=== PATIENT | female | born 1990 | race Caucasian/White ===

== ENCOUNTER 2023-04-18 17:05 | Emergency (ER) | payer SELFPAY ==
[2023-04-18 17:23] VITALS: BP 122/89; PULSE 96; RESP 18; TEMP 36.4; O2SAT 100
--- NOTE | 2023-04-18 18:52 | PC.NURSE ---
Patient up to desk to inform she is leaving. She will see her OB tomorrow. Patient amb out of ED with steady gait and in no acute distress.
== END 2023-04-18 18:52 | disposition left against medical advice (07) ==
LOC: ANHED 18:56
DX: O20.9 Hemorrhage in early pregnancy, unspecified (principal)
CPT/HCPCS: 99199

== ENCOUNTER 2024-03-14 17:21 | Emergency (ER) | payer SELFPAY ==
[2024-03-14 17:37] VITALS: BP 136/97; PULSE 72; RESP 16; TEMP 36.6; O2SAT 99
--- NOTE | 2024-03-14 17:44 | ED_ITS ---
HPI - Female Genitourinary General Chief complaint: Urogenital-Female Stated complaint: STD testing Time Seen by Provider: 03/14/24 17:50 Source: patient, RN notes reviewed and old records reviewed Mode of arrival: ambulatory Limitations: no limitations History of Present Illness HPI Narrative: Patient presents with request for STI testing and test. Reports that her boyfriend was unfaithful and now she has some vaginal odor. She denies any back pain or abdominal pain. She denies any fever, chills, sweats. She voices no other concerns or complaints at this time. Related Data Home Medications ?Medication ?Instructions ?Recorded ?Confirmed ?Last Taken ?Type Unable to Obtain Home Medications 03/14/24 03/14/24 Unknown History Allergies Allergy/AdvReac Type Severity Reaction Status Date / Time No Known Allergies Allergy Verified 03/14/24 17:50 Review of Systems Review of Systems: All systems reviewed & are unremarkable except as noted in HPI and below Constitutional: Constitutional: Reports no additional constitutional complaints ENT: Reports system reviewed and no additional complaints, except as documented Cardiovascular: Cardiovascular: Reports no additional cardiovascular complaints Respiratory: Respiratory: Reports no additional respiratory complaints Gastrointestinal: Gastrointestinal: Reports no additional gastrointestinal complaints Genitourinary: Genitourinary: Reports vaginal odor PMFSH Comments At the time of my signature, I reviewed and agree with the nursing past medical, surgical, social, and family history. There is no relevant family history pertinent to the patient complaint. Exam Const: General: cooperative, no acute distress, alert and awake Orientation/consciousness: oriented to person, oriented to place and oriented to time HENMT: Head: normal to inspection Resp: Effort & Inspection: normal respiratory effort and able to speak in complete sentences Auscultation: clear to auscultation bilaterally, no crackles, no rales, no rhonchi and no wheezes Cardio: Palpation: normal PMI Rate: regular rate Rhythm: regular rhythm Heart sounds: S1 normal heart sound present and S2 normal heart sound present Neuro: General: oriented to person, oriented to place and oriented to time Cranial nerves: Yes CN's II-XII intact bilaterally Psych: Appearance: grossly normal Thought process: Normal thought process present Insight: Good insight present (Psych) Judgement: Good judgement present (Psych) Course Course Level of Care: Express Care Visit Vital Signs Vital signs: Vital Signs Temperature 97.9 F 03/14/24 17:37 Pulse Rate 72 03/14/24 17:37 Respiratory Rate 16 03/14/24 17:37 Blood Pressure 136/97 H 03/14/24 17:37 Pulse Oximetry 99 03/14/24 17:37 Oxygen Delivery Room Air 03/14/24 17:37 Temperature 97.9 F 03/14/24 17:37 Pulse Rate 72 03/14/24 17:37 Respiratory Rate 16 03/14/24 17:37 Blood Pressure 136/97 H 03/14/24 17:37 Pulse Oximetry 99 03/14/24 17:37 Oxygen Delivery Room Air 03/14/24 17:37 Reviewed MDM - Female Genitourinary MDM Narrative Medical decision making narrative: Patient was made aware that STI panel is very limited, she is urged to follow up with primary care provider or STI clinic for more extensive testing. Negative test. Patient aware. Discharge instructions reviewed with patient, as well as provided in writing per nursing staff. The instructions also include specific and strict return/GO TO THE ER as well as f/u information. All questions have been answered, and the patient deny any further questions with discharge and discharge plan. Some parts of this dictation were generated by voice recognition software and may contain typographical and/or grammatical inaccuracies. Differential Diagnosis Differential diagnosis: Likely trichomoniasis and cervicitis Lab Data Attestation: I reviewed the patient's lab results. Discharge Plan Discharge Clinical Impression: Vaginal odor Patient Disposition: Home, Self-Care Condition: Stable Instructions: Antibiotic Form, Safe Sex Practices (ED) Additional Instructions: We do limited STI screening at this facility. We will call you if there is a positive result Patient Language: Vietnamese Follow-up/Referrals: PHYSICIAN,MARINE SAFETY OFFICER [Primary Care Provider] - Time of Disposition: 18:05
[2024-03-14 17:49] LABS: BEDSIDEPREGUCG Negative (Negative)
[2024-03-15 18:48] LABS: Trichomonas Vag PCR NOT DETECTED (NOT DETECTE)
[2024-03-15 19:09] LABS: Chlamydia trachomatis NOT DETECTED (NOT DETECTE); Neisseria gonorrhoeae PCR NOT DETECTED (NOT DETECTE)
== END 2024-03-14 18:10 | disposition home or self-care (01) ==
PROVIDERS: Emergency Provider Nurse Practitioner Family
DX: N89.8 Other specified noninflammatory disorders of vagina (principal); Z11.3 Encounter for screening for infections with a predominantly sexual mode of transmission
CPT/HCPCS: 81025; 87491; 87591; 87661; 99203; G0463

== ENCOUNTER 2024-07-03 08:01 | Emergency (ER) | payer SELFPAY ==
[2024-07-03] VITALS (8 sets, daily range): BP systolic 145–154; BP diastolic 101–112; PULSE 90–110; RESP 15–23; TEMP 36.7; O2SAT 97–100
--- NOTE | ~2024-07-03 | XR_ITS ---
EXAMINATION: XR chest 2V DATE: 07/03/2024 08:27 INDICATION: Pressure and palpitations TECHNIQUE: PA and lateral views of the chest were obtained. COMPARISON: None FINDINGS: The lungs are clear with no focal airspace opacities, pulmonary edema, pleural effusion or pneumothor ax. The cardiomediastinal silhouette is normal. Routine degree lower thoracic dextroscoliosis. IMPRESSION: 1. No acute cardiopulmonary disease. Reviewed, dictated and finalized at location B.
--- OUTSIDE RECORDS SUMMARY | 2024-07-03 08:02 | XMS_ITS | Encounter Summary ---
Author Organization [facility] Address 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
--- OUTSIDE RECORDS SUMMARY | 2024-07-03 08:02 | XMS_ITS | Clinical Summary ---
Author Organization [facility] Address [address] [place] [address] Care Team Providers Care Order Fulfillment Specialist Name Role Phone Moisés Rose MD Primary Care Provider [phone] Source Comments [facility],non-owned Affiliates and Associated Physician Practices is amultiple site organization consisting of ambulatory clinics and hospital sitesin [place], [place], [place] and [place]. This disclosure is being madepursuant to the Care Everywhere program and may not contain all information available regarding this patient. Last updated 17.[facility] Allergies Active Allergy Reactions Criticality Noted Date Comments Sulfa Drugs Urticaria 03/02/2015 Medications * Be aware that medications may not be up to date on this document. Alwaysverify current medications with the patient. 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 03/02/2015 Depression 03/02/2015 Anxiety 03/02/2015 Malaise and fatigue 03/02/2015 Sleep paralysis 03/02/2015 Palpitations 03/02/2015 Severe manic bipolar I disorder with psychotic f eatures 06/03/2014 Psychosis 06/03/2014 Family History Medical History Relation Name Comments Sleep Apnea Father Relation Name Status Comments Father Social History Tobacco Use Types Packs/Day Years Used Date Smoking Tobacco: Former Tobacco Cessation:Counseling Given: Yes Comments:e cigs Alcohol Use Standard Drinks/Week Comments Yes 0 (1 standard drink = 0.6 oz pur e alcohol) social Comments No Sex and Gender Information Value Date Recorded Sex Assigned at Not on file Legal Sex Female 4:11 PM SDC TEACHER Gender Identity Not on file Sexual Orientation Not on file Last Filed Vital Signs Vital Sign Reading Time Taken Comments Blood Pressure 118/82 05/10/2015 3:04 PM SDC TEACHER Pulse 100 01/12/2024 9:51 PM SDC TEACHER Temperature 37 C (98.6 F) 01/12/2024 9:51 PM SDC TEACHER Respiratory Rate 20 01/12/2024 9:51 PM SDC TEACHER Oxygen Saturation 100% 01/12/2024 9:51 PM SDC TEACHER Inhaled Oxygen Concentration - - Weight 48.1 kg (106 lb) 05/10/2015 3:04 PM SDC TEACHER Height 162.6 cm (5' 4 ) 01/12/2024 9:51 PM SDC TEACHER Body Mass Index 18.19 05/10/2015 3:04 PM SDC TEACHER Plan of Treatment Health Maintenance Due Date Last Done Comments HIV SCREENING 2006 HEPATITIS C SCREENING 04/19/2009 DTAP/TDAP/TD VACCINES (1 - Tdap) 2010 HEPATITIS B VACCINE (1 of 3 - 19+ 3-dose series) 2010 COVID-19 VACCINE (4 - 2023-2 5 season) 2023 06/24/2020, 05/24/2020, 03/19/2020 INFLUENZA VACCINE (Season Ended) 2024 12/09/2019, 12/21/2017 PAP SMEAR 01/12/2025 01/12/2022 ZOSTER VACCINE (1 of 2) 2041 HIB VACCINE Aged Out No longer eligi ble based on patient's age to complete this topic HPV VACCINE Aged Out No longer eligi ble based on patient's age to complete this topic MENINGOCOCCAL (Group B) VACCINE SHARED DECISION-MAKING Aged Out No longer eligible based on patient's age to complete this topic MENINGOCOCCAL GROUPS A/C/Y/W VACCINE Aged Out No longer eligible b ased on patient's age to complete this topic PNEUMOCOCCAL VACCINE Aged Out No long er eligible based on patient's age to complete this topic Insurance [employer] Care Teams Order Fulfillment Specialist Relationship Specialty Start Date End Date Moisés Rose MD [address] [place] [address] DR Alex ZAVALA [address] [place] [id number] PCP - General Internal Medicine 03/02/15
--- OUTSIDE RECORDS SUMMARY | 2024-07-03 08:02 | XMS_ITS | Clinical Summary ---
Author Organization 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
--- OUTSIDE RECORDS SUMMARY | 2024-07-03 08:02 | XMS_ITS | Referral Summary ---
Author Organization [facility] Address [address] [place] [address] Care Team Providers Care Commission Specialist Name Role Phone No, Physician Primary Care Provider [phone] Allergies Active Allergy Reactions Criticality Noted Date Comments Sulfa Hives Medium 07/24/2023 Sulfa (Sulfonamide Antibiotics) Hives High Reaction: Hives, Medications miSOPROStoL (CYTOTEC) 200 mcg tabletIndicatio ns:miscarriage Insert 4 pills (800mcg) into vagina 4 tablet 07/24/2023 Active HYDROcodone-lisa taminophen (NORCO) 5-325 mg per tabletIndicatio ns:Pain Take 1-2 tablets by mouth every 6 (six) hours as needed for pain 20 tablet 07/26/2023 Active ondansetron (ZOFRAN) 4 mg tablet Take 1 tablet (4 mg total) by mouth every 6 (six) hours as needed for nausea or vomiting 20 tablet 07/26/2023 Active Active Problems Problem Noted Date Diagnosed Date Abdominal cramping 07/26/2023 Incomplete miscarriage 07/26/2023 Missed 07/24/2023 Pain of foot 03/12/2015 Contusion of hand 03/10/2015 Overview (06/14/2017): Impression: Improving. Continue Ibuprofen PRN. Activity as tolerated. I expect SX to continue to improve. Contusion of foot 03/10/2015 Overview (06/14/2017): Impression: Moderate pain. Check Xray to rule out FX. Ibuprofen and Tylenol PRN. Activity as tolerated. Ice PRN. If not improving, then refer to Ortho. Anxiety disorder 08/01/2012 Comments Yes Immunizations Immunization Administration Dates Next Due HPV, Quadrivalent 09/13/2007,03/27/2007,09/13/19 07 Hep A, Unspecified 09/12/2006,08/08/2005 Hep B Vaccine 09/24/1996,06/13/1995,05/11/1995 IPV 12/03/1992,1991,1991 ,1991 MMR 09/24/1996,07/26/1992 Meningococcal MCV4P (Menactra) 09/12/2006 Tdap 08/08/2005 Social History Tobacco Use Types Packs/Day Years Used Date Smoking Tobacco: Never Personal Safety Answer Date Recorded Have you ever been in or are you currently in a harmful physical or emotional relationship or is someone making you feel afraid or unsafe? 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 Gender Identity Not on file Sexual Orientation Not on file Last Filed Vital Signs Vital Sign Reading Time Taken Comments Blood Pressure 118/67 07/26/2023 6:45 AM CDT Pulse 77 07/26/2023 6:45 AM CDT Temperature 36.6 C (97.8 F) 07/26/2023 1:31 AM CDT Respiratory Rate 18 07/26/2023 6:45 AM CDT Oxygen Saturation 95% 07/26/2023 6:45 AM CDT Inhaled Oxygen Concentration - - Weight 54.4 kg (120 lb) 07/26/2023 1:31 AM CDT Height 162.6 cm (5' 4 ) 08/01/2012 10:39 AM CDT Body Mass Index - - Plan of Treatment Not on file Insurance [employer] ACCESS CHOICE [facility] [address] [place] [id number] CHOICE PLUS [facility] Care Teams Commission Specialist Relationship Specialty Start Date End Date No, Physician PCP - General 07/24/23
--- OUTSIDE RECORDS SUMMARY | 2024-07-03 08:02 | XMS_ITS | Clinical Summary ---
Author Organization [facility] Address [address] [place] [address] Care Team Providers Care Call Manager Name Role Phone No, Physician Primary Care Provider [phone] Allergies Active Allergy Reactions Criticality Noted Date [...] 09/24/1996,07/26/1992 Meningococcal MCV4P (Menactra) 09/12/2006 Tdap 08/08/2005 Surgical History Surgery Date Site/Laterality Comments GA TONSILLECTOMY PRIMARY/SEC ONDARY <AGE 13 Tonsillectomy - (Added by TW Conv) Medical History Medical History Date Comments Other benign neoplasm of skin of trunk Benign neoplasm of skin of trunk - (Added by TW Conv) Family History Medical History Relation Name Comments Asthma Brother Asthma - (Added by TW Conv) Rheum arthritis Brother Rheumatoid A rthritis - (Added by TW Conv) Skin cancer Mother Skin Cancer - ( Added by TW Conv) Relation Name Status Comments Brother Mother Social History Tobacco Use Types Packs/Day Years [...] on file 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 LACEWORKER Problem Visit Subjective: Hliaria Shukla is a 33 y.o. female who presents for Chief Complaint Patient presents with MAB . HPI: 33yo presents after US reveals early loss. She is here with her boyfriend. US Ob Transvaginal Result Date: 07/25/2023 Impression: An irregularly shaped gestational sac is seen within the uterus. There is a yolk sac and pole seen. The CRL measures 3.8mm. There is no cardiac motion detected. Power doppler was utilized to confirm the absence of a heartbeat. She notes scant vaginal bleeding. She also notes that she had an early US at a [facility] on 07/12/23. CRL measured 6 weeks at that time and no cardiac motion was seen. She has a photo of the US on her phone which confirms the above. Current Medications: Current Outpatient Medications: HYDROcodone-acetaminophen (NORCO) 5-325 mg per tablet, Take 1-2 tablets by mouth every 6 (six) hours as needed for pain, Disp: 20 tablet, Rfl: 0 miSOPROStoL (CYTOTEC) 200 mcg tablet, Insert 4 pills (800mcg) into vagina, Disp: 4 tablet, Rfl: 0 ondansetron (ZOFRAN) 4 mg tablet, Take 1 tablet (4 mg total) by mouth every 6 (six) hours as needed for nausea or vomiting, Disp: 20 tablet, Rfl: 0 Medical History: Past Medical History: Diagnosis Date Other benign neoplasm of skin of trunk Benign neoplasm of skin of trunk - (Added by TW Conv) Allergies: Allergies Allergen Reactions Sulfa (Sulfonamide Antibiotics) Hives Reaction: Hives, Sulfa Hives Obstetric History: OB History Para Term AB Living 1 0 0 0 0 0 SAB IAB Ectopic Multiple Live Births 0 0 0 0 0 # Outcome Date GA Lbr Sang/2nd Weight Sex Type Anes PTL Lv 1 Current Gynecologic History: Patient's last menstrual period was 05/17/2023. Social History Substance and Sexual Activity Sexual Activity Not on file Surgical History: Past Surgical History: Procedure Laterality Date GA TONSILLECTOMY PRIMARY/SECONDARY <AGE 13 Tonsillectomy - (Added by TW Conv) Family History: Family History Problem Relation Age of Onset Asthma Brother Asthma - (Added by TW Conv) Rheum arthritis Brother Rheumatoid Arthritis - (Added by TW Conv) Skin cancer Mother Skin Cancer - (Added by TW Conv) Social History: Social History Tobacco Use Smoking status: Never Smokeless tobacco: Not on file Substance and Sexual Activity Drug use: Not on file Sexual activity: Not on file Alcohol Use: Not At Risk (03/02/2020) Received from [employer] [facility] Frequency of Alcohol Consumption: Never Average Number of Drinks: Not on file Frequency of Binge Drinking: Not on file Objective: LMP 05/17/2023 Physical Exam: General: alert, orientated, cooperative Assessment and Plan: 33 y.o. female with early loss 1. Missed Reviewed findings diagnostic of missed . Explained to patient that this was nothing she did to cause this. Explained how common miscarriages are. Explained options regarding management with patient. Explained expectant management option. Discussed unknown duration of time it may take to pass and explained bleeding precautions. Explained plan for repeat US one week after passage of pregancy. Explained option of medical management with Cytotec vaginally. Explained 85% effectiveness rate. Explained cramping and bleeding side effects and bleeding precautions reviewed. Explained need to have another adult available in case bleeding would be excessive. Explained lastly the option of suction D&C. Explained over 99% effective. Explained risks with surgery including infection, bleeding, perforation of uterus as well as scar formation. Questions were asked and answered. Patient voiced understanding. Patient opts for cytotec. RX sent Plan US follow -up in 1 week to ensure passage of Recommend against genetic testing given first MAB - US Pelvis Complete; Future My total encounter time on 07/30/2023 was 25 minutes which was spent in the activities documented in the note. This includes time spent prior to the visit and after the visit in direct care of the patient. This time does not include time spent in any separately reportable services. Cayla Milton MD Last Filed Vital Signs Vital Sign Reading [...] Mass Index - - Plan of Treatment Health Maintenance Due Date Last Done Comments Cervical Cancer Screening 1991 Depression Screening 1991 Hepatitis C Screening 1991 Varicella Vaccines (1 of 2 - 13+ 2-dose series) 2004 Regular Well Visit/Exam 18-64 2009 Pneumococcal vaccine <65 (1 of 2 - PCV) 2010 Covid-19 Vaccine ( season) 2023 06/24/2020, 05/24/2020, 03/19/2020 Influenza Vaccine (Season Ended) 2024 12/09/19, 12/21/2017 DTaP/Tdap/Td Vaccine (3 - Td or Tdap) 07/05/203104/2021, 08/08/2005 Hepatitis B Screening Completed 09/24/1996 , 06/13/1995, 05/11/1995 HPV Vaccines Completed 09/13/2007, 03/06, 09/12/2006 [facility] Subscriber Plan / Payer (Ef fective 2022-Present) Name:Hilaria Shukla Relation to Subscriber:Self Name:Hilaria Shukla Payer ID:[id number] (NA) Group ID:[id number] Type:YANNI TURNER Address: [facility] [id number] CHOICE PLUS [facility] [place] [address] Care Teams Call Manager Relationship Specialty Start Date End Date No, Physician PCP - General 07/24/23
--- OUTSIDE RECORDS SUMMARY | 2024-07-03 08:02 | XMS_ITS | Encounter Summary ---
Author Organization [facility] Address [address] [place] [address] Care Team Providers Care Gravity Prospecting Operator Name Role Phone Moisés Rose MD Primary Care Provider [phone] Encounter Details Date Type Department Care Team (Late st Contact Info) Description 03/03/2015 Telephone [facility] [address] [place] [address], [address] [place] [id number] Curtis Salamanca, [facility] [address] [place] [address] Social History Tobacco Use Types Packs/Day Years Used Date Smoking Tobacco: Former Comments:e cigs Alcohol Use Standard Drinks/Week Comments Yes 0 (1 standard drink = 0.6 oz pur e alcohol) social Comments No Sex and Gender Information Value Date Recorded Sex Assigned at Not on file 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
--- NOTE | 2024-07-03 08:04 | ECG_ITS ---
Test Date: 2024-07-03 07:59:57 Measurements Intervals [place] Rate: 94 P: 66 VA: 125 QRS: 50 QRSD: 94 T: 37 QT: 359 QTc: 451 Interpretive Statements SINUS RHYTHM LEFT ATRIAL ENLARGEMENT [-0.15mV P WAVE IN V1/V2] INCOMPLETE RIGHT BUNDLE BRANCH BLOCK [90+ ms QRS DURATION, TERMINAL R IN V1/V2, 40+ ms S IN I/aVL/V4/V5/V6] No previous ECG available for comparison Electronically Signed On 07-04-2024 18:56:25 CDT by Karin Murillo
[2024-07-03 08:17] LABS: Basophils Percent Auto 0.7 % (0.2-1.2); Eosinophils Percent Auto 0.7 % (0-4.4); Hematocrit 36.4 % (37.0-47.0); Hemoglobin 11.9 g/dL (12.0-15.0); Immature Granulocyte Absolute 0.01 K/mm3 (0.00-0.031); Immature Granulocyte Percent A 0.2 % (0-0.5); Lymphocytes Percent Auto 33.1 % (18.3-44.2); Mean Corpuscular HGB Conc 32.7 g/dl (32-36); Mean Corpuscular Hemoglobin 30.1 pg (26-34); Mean Corpuscular Volume 92.2 fl (80-100); Mean Platelet Volume 9.2 fl (7.4-10.4); Monocytes Absolute Auto 0.6 K/mm3 (0.1-0.6); Monocytes Percent Auto 9.4 % (2.6-8.5); Neutrophils Absolute Auto 3.4 K/mm3 (1.3-6.7); Neutrophils Percent Auto 55.9 % (45.5-73.1); Platelet Count Result 312 k/mm3 (150-375); Red Blood Count 3.95 M/mm3 (4.2-5.4)
[2024-07-03 08:27] LABS: Alanine Aminotransferase 16 U/L (6-35); Albumin Level 4.5 g/dL (3.5-5.1); Alkaline Phosphatase 77 U/L (38-126); Anion Gap 12 mmol/L (4-12); Aspartate Amino Transferase 27 U/L (14-36); Bilirubin,Total 0.6 mg/dL (0.2-1.3); Blood Urea Nitrogen 13 mg/dL (7-17); Calcium 9.2 mg/dL (8.4-10.2); Carbon Dioxide 23 mmol/L (22-30); Chloride 104 mmol/L (98-107); Estimated CRCL calculation 92 ml/min; Estimated Glomerular Filt Rate > 60; Glucose 95 mg/dL (65-110); Lipase 84 U/L (23-300); Potassium 3.1 mmol/L (3.4-5.0); Sodium 139 mmol/L (137-145)
[2024-07-03 08:28] LABS: Prothrombin Time 13.5 Seconds (11.1-14.7)
[2024-07-03 08:29] LABS: Partial Thromboplastin Time 29.1 Seconds (22.3-36.8)
[2024-07-03 08:39] LABS: Troponin I < 0.012 ng/mL (0.000-0.034)
--- OUTSIDE RECORDS SUMMARY | 2024-07-03 08:41 | XMS_ITS | Referral Summary ---
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
--- OUTSIDE RECORDS SUMMARY | 2024-07-03 08:41 | XMS_ITS | Encounter Summary ---
Author Organization [facility] Address [address] [facility] [place] [address] Care Team Providers Care Academic Administrator Name Role Phone Moisés Rose MD Primary Care Provider [phone] Encounter Details Date Type Department Care Team (Late st Contact Info) Description 03/03/2015 Telephone [facility] [address] [place] [address], [address] [place] [phone] Curtis Salamanca, OPERATIONS SUPPORT [facility] [address] [place] [address] Social History Tobacco Use Types Packs/Day Years Used Date Smoking Tobacco: Former Comments:e cigs Alcohol Use Standard Drinks/Week Comments Yes 0 (1 standard drink = 0.6 oz pur e alcohol) social Comments No Sex and Gender Information Value Date Recorded Sex Assigned at Not on file 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
--- OUTSIDE RECORDS SUMMARY | 2024-07-03 08:41 | XMS_ITS | Clinical Summary ---
Author Organization [facility] Address [address] [facility] [place] [address] Care Team Providers Care Automotive Power Electronics Engineer Name Role Phone Moisés Rose MD Primary Care Provider [phone] Source Comments [facility],non-owned Affiliates and Associated Physician Practices is amultiple site organization consisting of ambulatory clinics and hospital sitesin [place], [place], [place] and [place]. This disclosure is being madepursuant to the Care Everywhere program and may not contain all information available regarding this patient. Last updated 17.[facility] Allergies Active Allergy Reactions Criticality Noted Date [...] on file Legal Sex Female 4:11 PM COCOA MILL OPERATOR Gender Identity Not on file Sexual Orientation Not on file Last Filed Vital Signs Vital Sign Reading Time Taken Comments Blood Pressure 118/82 05/10/2015 3:04 PM COCOA MILL OPERATOR Pulse 100 01/12/2024 9:51 PM COCOA MILL OPERATOR Temperature 37 C (98.6 F) 01/12/2024 9:51 PM COCOA MILL OPERATOR Respiratory Rate 20 01/12/2024 9:51 PM COCOA MILL OPERATOR Oxygen Saturation 100% 01/12/2024 9:51 PM COCOA MILL OPERATOR Inhaled Oxygen Concentration - - Weight 48.1 kg (106 lb) 05/10/2015 3:04 PM COCOA MILL OPERATOR Height 162.6 cm (5' 4 ) 01/12/2024 9:51 PM COCOA MILL OPERATOR Body Mass Index 18.19 05/10/2015 3:04 PM COCOA MILL OPERATOR Plan of Treatment Health Maintenance Due Date [...] to complete this topic Insurance TPL THIRD DEMOCRAT LIABILITY Constitution Party Liability Care Teams Automotive Power Electronics Engineer Relationship Specialty Start Date End Date Moisés Rose MD [address] [place] [address] DR Alex ZAVALA [address] [place] [id number] PCP - General Internal Medicine 03/02/15
--- OUTSIDE RECORDS SUMMARY | 2024-07-03 08:41 | XMS_ITS | Clinical Summary ---
Author Organization [facility] Address [address] [facility] Attn: Epic Prelude ADT [place] [address] Care Team Providers Care Ham Stringer Name Role Phone Kenton Barrientos MD Primary Care Provider [phone] Social History Tobacco Use Types Packs/Day Years Used Date Smoking Tobacco: Never Assessed Comments Unknown Sex and Gender Information Value Date Recorded Sex Assigned at Not on file Legal Sex Female 4:57 AM MIXING AND MOLDING MACHINE OPERATOR Gender Identity Not on file Sexual [...] age to complete this topic Care Teams Ham Stringer Relationship Specialty Start Date End Date Kenton Barrientos MD [address] [place] [address] PCP - General 05/18/10
--- OUTSIDE RECORDS SUMMARY | 2024-07-03 08:41 | XMS_ITS | Encounter Summary ---
Author Organization [facility] Address [address] [place] [address] Care Team Providers Care Jewelry Sales Associate Name Role Phone Kenton Barrientos MD Primary Care Provider [phone] Encounter Details Date Type Department Care Team (Late st Contact Info) Description 04/16/2002 Outpatient Historical [facility] Asher Harley MD [address] [address] CHRONIC TONSILLITIS (Primary Dx) Social History Tobacco Use Types Packs/Day Years Used Date Smoking Tobacco: Never Assessed Comments Unknown Sex and Gender Information Value Date Recorded Sex Assigned at Not on file Legal Sex Female 4:57 AM WEB PRESS ROLL TENDER Gender Identity Not on file Sexual Orientation Not on file documented as of this encounter Plan of Treatment Not on file documented as of this encounter Visit Diagnoses Diagnosis Chronic tonsillitis- Primary documented in this encounter Care Teams Jewelry Sales Associate Relationship Specialty Start Date End Date Kenton Barrientos MD [address] [place] [address] PCP - General 05/18/10 documented as of this encounter
--- OUTSIDE RECORDS SUMMARY | 2024-07-03 08:41 | XMS_ITS | Clinical Summary ---
Author Organization [facility] Address [address] [place] [address] Care Team Providers Care Restaurant Recruiter Name Role Phone No, Physician Primary Care Provider [phone] Allergies Active Allergy Reactions Criticality Noted Date [...] 08/08/2005 Surgical History Surgery Date Site/Laterality Comments [place] TONSILLECTOMY PRIMARY/SEC ONDARY <AGE 13 Tonsillectomy - [...] on file Legal Sex Female 9:21 PM CAR ICER Gender Identity Not on file Sexual Orientation [...] from the original note were not included. AQUATICS ASSISTANT DEPARTMENT HEAD Problem Visit Subjective: Hilaria Shukla is a 33 y.o. female who [...] she had an early US at a [facility] on 07/12/23. CRL measured 6 weeks [...] History: Past Surgical History: Procedure Laterality Date WI TONSILLECTOMY PRIMARY/SECONDARY <AGE 13 Tonsillectomy - (Added [...] Use: Not At Risk (03/02/2020) Received from [facility] Frequency of Alcohol Consumption: Never Average [...] spent in any separately reportable services. Cayla Mliton MD Last Filed Vital Signs Vital Sign [...] HPV Vaccines Completed 09/13/2007, 03/06, 09/12/2006 Insurance [facility]PLAC[facility] BY [facility] Member Subscriber Plan / Payer (Ef fective 2022-Present) Name:Hilaria Shukla Relation to Subscriber:Self Name:Hilaria Shukla Payer ID:[id number] (NA) Group ID:[id number] Type:YANNI TURNER Address: [facility] [id number] [facility] [place] [address] Care Teams Restaurant Recruiter Relationship Specialty Start Date End Date No, Physician PCP - General 07/24/23
[2024-07-03 08:45] LABS: D Dimer 0.43 ug/mL (<0.48)
[2024-07-03 08:46] LABS: Creatine Kinase 101 U/L (30-135)
--- NOTE | 2024-07-03 08:49 | PC.NURSE ---
this RN asked pt to pee in a cup for a sample and explained how to wipe. this RN walked pt to the bathroom and said to bring the cup back to the room. pt walked out of the bathroom and said oh i forgot to pee in the cup . pt then walked back to the room and said she will drink some water and try again later
[2024-07-03 09:04] LABS: Procalcitonin < 0.0 ng/mL
--- NOTE | 2024-07-03 09:35 | ED.GENADULT ---
HPI - General Adult General Chief complaint: Arrhythmia/Palpitations Stated complaint: Palpatations Time Seen by Provider: 07/03/24 08:10 History of Present Illness HPI narrative: Patient is a 34-year-old female who presents emergency department with chief complaint of heart palpitations. 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 Related Data Home Medications ?Medication ?Instructions ?Recorded ?Confirmed ?Last Taken ?Type Unable to Obtain Home Medications 03/14/24 03/14/24 Unknown History Allergies Allergy/AdvReac Type Severity Reaction Status Date / Time clams AdvReac Intermediate Hives Verified 07/03/24 08:07 Sulfa (Sulfonamide AdvReac Intermediate Hives Verified 07/03/24 08:07 Antibiotics) Review of Systems Review of Systems: A 10 system review of systems was completed on the patient and is negative except for what is stated in the HPI. Nursing and ancillary documentation was reviewed. Exam Narrative: GENERAL: Well-appearing, well-nourished, and in no acute distress. HEAD: Normocephalic, atraumatic. EYES: PERRLA and EOMI. ENT: Nares clear, no rhinorrhea or epistaxis. Mucous membranes moist. NECK: Supple. CHEST: Clear to auscultation. No respiratory distress. HEART: Regular rate and rhythm. No murmur heard. Normal peripheral pulses. ABDOMEN: Soft, nontender, nondistended, normal active bowel sounds. EXTREMITIES: Normal range of motion. No edema. SKIN: Warm, dry, no rash. NEURO: No focal deficits. Alert and oriented x3. PSYCH: Unusual mood and affect. Denies suicidal or homicidal ideation Course Vital Signs Vital signs: Vital Signs Temperature 36.7 C 07/03/24 08:05 Pulse Rate 90 07/03/24 08:05 Respiratory Rate 17 07/03/24 08:05 Blood Pressure 150/107 H 07/03/24 08:05 Pulse Oximetry 100 07/03/24 08:05 Oxygen Delivery Room Air 07/03/24 08:05 Temperature 36.7 C 07/03/24 08:05 Pulse Rate 93 07/03/24 09:30 Respiratory Rate 16 07/03/24 09:30 Blood Pressure 148/102 H 07/03/24 09:30 Pulse Oximetry 100 07/03/24 09:30 Oxygen Delivery Room Air 07/03/24 08:05 Medical Decision Making MDM Narrative Medical decision making narrative: Differential diagnosis includes ACS, PE, electrolyte abnormality, Patient is afebrile Troponin was negative D-dimer was negative CBC was normal CMP showed no acute abnormalities procalcitonin was negative CK was negative Vital Signs Vital Signs: Vital Signs Temperature 36.7 C 07/03/24 08:05 Pulse Rate 90 07/03/24 08:05 Respiratory Rate 17 07/03/24 08:05 Blood Pressure 150/107 H 07/03/24 08:05 Pulse Oximetry 100 07/03/24 08:05 Oxygen Delivery Room Air 07/03/24 08:05 Temperature 36.7 C 07/03/24 08:05 Pulse Rate 93 07/03/24 09:30 Respiratory Rate 16 07/03/24 09:30 Blood Pressure 148/102 H 07/03/24 09:30 Pulse Oximetry 100 07/03/24 09:30 Oxygen Delivery Room Air 07/03/24 08:05 Lab Data 07/03/24 08:09 07/03/24 08:09 Labs: Lab Results 07/03/24 Range/Units 08:09 WBC 6.0 (4.5-10.0) K/mm3 RBC 3.95 L (4.2-5.4) M/mm3 Hgb 11.9 L (12.0-15.0) g/dL Hct 36.4 L (37.0-47.0) % MCV 92.2 (80-100) fl MCH 30.1 (26-34) pg MCHC 32.7 (32-36) g/dl RDW 12.0 (11.5-14.5) % Plt Count 312 (150-375) k/mm3 MPV 9.2 (7.4-10.4) fl Immature Gran % (Auto) 0.2 (0-0.5) % Neut % (Auto) 55.9 (45.5-73.1) % Lymph % (Auto) 33.1 (18.3-44.2) % [place] % (Auto) 9.4 H (2.6-8.5) % Eos % (Auto) 0.7 (0-4.4) % Baso % (Auto) 0.7 (0.2-1.2) % Lymph # (Auto) 2.00 (0.9-3.2) K/mm3 [place] # (Auto) 0.6 (0.1-0.6) K/mm3 Eos # (Auto) 0.0 (0-0.3) K/mm3 Baso # (Auto) 0.0 (0.0-0.1) K/mm3 Abs Immat Gran (auto) 0.01 (0.00-0.031) K/mm3 Absolute Neuts (auto) 3.4 (1.3-6.7) K/mm3 Absolute Nucleated RBC 0.000 (0.0-0.012) K/mm3 Nucleated RBC % 0.0 (0.0-0.2) % PT 13.5 (11.1-14.7) Seconds INR 1.0 APTT 29.1 (22.3-36.8) Seconds D-Dimer 0.43 (<0.48) ug/mL Sodium 139 (137-145) mmol/L Potassium 3.1 L (3.4-5.0) mmol/L Chloride 104 (98-107) mmol/L Carbon Dioxide 23 (22-30) mmol/L Anion Gap 12 (4-12) mmol/L BUN 13 (7-17) mg/dL Creatinine 0.64 L (0.7-1.0) mg/dL Estim Creat Clear Calc 92 ml/min Estimated GFR > 60 (59 - ) Glucose 95 (65-110) mg/dL Calcium 9.2 (8.4-10.2) mg/dL Magnesium 2.0 (1.6-2.3) mg/dL Total Bilirubin 0.6 (0.2-1.3) mg/dL AST 27 (14-36) U/L ALT 16 (6-35) U/L Alkaline Phosphatase 77 (38-126) U/L Total Creatine Kinase 101 (30-135) U/L Troponin I < 0.012 (0.000-0.034) ng/mL Total Protein 7.0 (6.3-8.2) g/dL Albumin 4.5 (3.5-5.1) g/dL Lipase 84 (23-300) U/L Procalcitonin < 0.0 ng/mL Discharge Plan Discharge Clinical Impression: Palpitations Patient Disposition: Home Condition: Stable Instructions: Antibiotic Form, Heart Palpitations (ED) Patient Language: Wallisian Prescriptions: No Action Unable to Obtain Home Medications Follow-up/Referrals: Edy Olmos MD [Physician] - UNKNOWN,DOCTOR [Primary Care Provider] - Time of Disposition: 09:38
--- NOTE | 2024-07-03 10:06 | PC.NURSE ---
this RN tried discharging pt and pt was talking about how no one is helping her pain due to the snakes in her head. pt asked for Dilaudid. this RN told her that the EDP says she does not qualify for narcotics. this RN offered Tylenol and pt laughed and said no. this RN was taking pt IV out and pt said that your in on my murder this RN asked her whose trying to murder her, pt said wouldn't you like to know . pt was gathering her belongings and said she is looking into hospice. pt had a steady gait ambulating out of the ED in no acute distress. care coordination was at bedside and offered pt a bus token. pt laughed and said she will call for a ride
== END 2024-07-03 10:18 | disposition home or self-care (01) ==
PROVIDERS: Emergency Provider Emergency Medicine
DX: R00.2 Palpitations (principal); I45.10 Unspecified right bundle-branch block; R94.31 Abnormal electrocardiogram [ECG] [EKG]
CPT/HCPCS: 36415; 71046; 80053; 82550; 83690; 83735; 84145; 84484; 85025; 85380; 85610; 85730; 93005; 99284

== ENCOUNTER 2024-12-06 19:54 | Emergency (ER) | payer BC, SELFPAY ==
[2024-12-06 19:56] VITALS: BP 130/98; PULSE 100; RESP 18; TEMP 37.1; O2SAT 98
--- OUTSIDE RECORDS SUMMARY | 2024-12-06 19:56 | XMS_ITS | Encounter Summary ---
Author Organization [facility] Address [address] [facility] [place] [address] Care Team Providers Care Digital Marketing Apprentice Name Role Phone Moisés Rose MD Primary Care Provider [phone] Pcp, None Primary Care Provider Unavailabl e Encounter Details Date Type Department Care Team (Late st Contact Info) Description 03/03/2015 Telephone [facility] [address] [facility], [address] [place] [phone] Cheikh Curtis César, [facility] [address] [place] [address] Social History Tobacco Use Types Packs/Day Years Used Date Smoking Tobacco: Former Comments:e cigs Alcohol Use Standard Drinks/Week Comments Yes 0 (1 standard drink = 0.6 oz pur e alcohol) social Comments No Sex and Gender Information Value Date Recorded Sex Assigned at Not on file Legal Sex Female 4:11 PM NURSE TRANSITIONAL Gender Identity Not on file Sexual Orientation Not on file documented as of this encounter Plan of Treatment Not on file documented as of this encounter Visit Diagnoses Not on filedocumented in this encounter Care Teams Digital Marketing Apprentice Relationship Specialty Start Date End Date Moisés Rose MD [address] [place] [address] DR Johnson [address] [address] PCP - General Internal Medicine 03/02/15 10/14/24 Pcp, None [address] [place] [address] PCP - General 10/15/24 documented as of this encounter
--- OUTSIDE RECORDS SUMMARY | 2024-12-06 19:56 | XMS_ITS | Clinical Summary ---
Author Organization [facility] Address [address] [place] [address] Care Team Providers Care Stock Manager Name Role Phone Pcp, None Primary Care Provider Unavailabl e Source Comments [facility],non-owned Affiliates and Associated Physician Practices is amultiple site organization consisting of ambulatory clinics and hospital sitesin [place], [place], [place] and [place]. This disclosure is being madepursuant to the Care Everywhere program and may not contain all information available regarding this patient. Last updated 17.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 Depression 03/02/2015 Anxiety 03/02/2015 Malaise and fatigue 03/02/2015 Sleep paralysis 03/02/2015 Palpitations 03/02/2015 Severe manic bipolar I disorder with psychotic f eatures 06/03/2014 Psychosis 06/03/2014 Encounters Date Type Department Care Team Description 10/15/2024 7:41 PM CDT - 10/16/2024 2:51 AM CDT Emergency ER at [address] [address] Bran Nascimento MD Adjustment disorder with mixed disturbance of emotions and conduct Discharge Disposition: Home or Self Care 10/15/2024 Travel from Last 3 Months Family History Medical History Relation Name Comments [...] on file Legal Sex Female 4:11 PM LAB ASST Gender Identity Not on file Sexual Orientation Not on file Last Filed Vital Signs Vital Sign Reading Time Taken Comments Blood Pressure 129/97 10/15/2024 11:50 PM CDT Pulse 81 10/15/2024 11:50 PM CDT Temperature 36.9 C (98.4 F) 10/15/2024 8:28 PM CDT Respiratory Rate 18 10/15/2024 8:28 PM CDT Oxygen Saturation 100% 10/15/2024 11:50 PM CDT Inhaled Oxygen Concentration - - Weight 54.4 kg (120 lb) 10/15/2024 7:53 PM CDT Height 162.6 cm (5' 4) 10/15/2024 7:53 PM CDT Body Mass Index 20.6 10/15/2024 7:53 PM CDT Plan of Treatment Health Maintenance Due Date Last Done Comments DTAP/TDAP/TD VACCINES (1 - Tdap) 2010 HEPATITIS B VACCINE (1 of 3 - 19+ 3-dose series) 2010 PNEUMOCOCCAL VACCINE (1 of 2 - PCV) 2010 HPV VACCINE (1 - 3-dose SCDM series) 2018 COVID-19 VACCINE (4 - 2024-2 6 season) 2024 06/24/2020, 05/24/2020, 03/19/2020 INFLUENZA VACCINE (#1) 2024 , 12/21/2017 PAP SMEAR 01/12/2025 01/12/2022, 01/12/2022, 12/21/2017 ZOSTER VACCINE (1 of 2) 2041 HEPATITIS C SCREENING Completed 08/22/2016 HIV SCREENING Completed 08/22/2016 HIB VACCINE Aged Out No longer eligi ble based on patient's age to complete this topic MENINGOCOCCAL (Group B) VACCINE SHARED DECISION-MAKING Aged Out No longer eligible based on patient's age to complete this topic MENINGOCOCCAL GROUPS A/C/Y/W VACCINE Aged Out No longer eligible b ased on patient's age to complete this topic Procedures Procedure Name Priority Date/Time Associated Diagnosis Comments DRUG SCREEN URINE STAT 10/15/2024 8:5 3 PM CDT HCG URINE QUALITATIVE - POCT (IP) INTERFACED Routine 10/15/2024 8:52 PM CDT from Last 3 Months Results * (ABNORMAL) DRUG SCREEN URINE (10/15/2024 8:53 PM CDT) Pathologist [facility] Cannabinoids Screen Urine Not detected Not detected 10/15/2024 9:36 PM CDT [facility] Phencyclidine Screen Urine Not detected Not detected 10/15/2024 9:36 PM CDT [facility] Cocaine Screen Urine Not detected Not detected 10/15/2024 9:36 PM CDT [facility] Methamphetamine Screen Urine Detected(A) Not detected 10/15/2024 9:36 PM CDT [facility] Opiate Screen Urine Not detected Not detected 10/15/2024 9:36 PM CDT [facility] Amphetamines Screen Urine Detected(A) Not detected 10/15/2024 9:36 PM CDT [facility] Benzodiazepines Screen Urine Not detected Not detected 10/15/2024 9:36 PM CDT [facility] Tricyclics Screen Urine Not Detected Not Detected 10/15/2024 9:36 PM CDT [facility] Methadone Screen Urine Not detected Not detected 10/15/2024 9:36 PM CDT [facility] Barbiturates Screen Urine Not detected Not detected 10/15/2024 9:36 PM CDT [facility] Oxycodone Screen Urine Not detected Not detected 10/15/2024 9:36 PM CDT [facility] Urine URINE / Unknown Collection / Unknown 10/15/2024 8:53 PM CDT 10/15/2024 8:56 PM CDT Narrative [facility] - 10/15/2024 9:36 PM CDT This drug screen is designed for MEDICAL purposes only. It is not to be used for legal purposes, including but not limited to worker's compensation, police investigations, occupational issues, child custody, etc. Any positive result is only presumptive and must be confirmed with a separate confirmatory test ordered by the physician. Drug Screening Test Cutoff Values: AMPHETAMINES 500 ng/mL BARBITURATES 200 ng/mL BENZODIAZEPINES 150 ng/mL CANNABINOIDS(THC) 50 ng/mL COCAINE 150 ng/mL METHADONE 200 ng/mL METHAMPHETAMINE 500 ng/mL OPIATES 100 ng/mL OXYCODONE 100 ng/mL PHENCYCLIDINE(PCP) 25 ng/mL TRICYCLICS 300 ng/mL Bran Nascimento MD LAB - URINE CHEMISTRY ORDERABLES Final Result Performing Organization Address City/[facility]/ZIP Co de Phone Number [facility] [address] [phone] * HCG URINE QUALITATIVE - POCT (IP) INTERFACED (10/15/2024 8:52 PM CDT) HCG Qual Urine Negative Negative 10/15/2024 9:20 PM CDT [facility] Urine URINE / Unknown Collection / Unknown 10/15/2024 8:52 PM CDT 10/15/2024 8:56 PM CDT Bran Nascimento MD LAB - POINT OF CARE ORDERABLES F inal Result Performing Organization Address [facility] Co de Phone Number [facility] [address] [phone] from Last 3 Months Insurance ANTHEM Member Subscriber Plan / Payer (Ef fective 2024-) Name:Hilaria Shukla Relation to Subscriber:Self Name:Hilaria Shukla Payer ID:[id number] ([facility]) Type:HMO Address: [address] [place] [address] [facility] [employer] [employer] LIABILITY Alliance Party Liability ANTHEM TPL THIRD ALLIANCE PARTY LIABILITY Alliance Party Liability [facility] Address: [facility] [id number] [place] [id number] Care Teams Stock Manager Relationship Specialty Start Date End Date Pcp, None [address] [place] [address] PCP - General 10/15/24
--- OUTSIDE RECORDS SUMMARY | 2024-12-06 19:56 | XMS_ITS | Encounter Summary ---
Author Organization [facility] Address [address] [place] [address] Care Team Providers Care Senior Accountant Cpa Name Role Phone Kenton Barrientos MD Primary Care Provider [phone] Encounter Details Date Type Department Care Team (Late st Contact Info) Description 04/16/2002 Outpatient Historical [facility] Asher Harley MD [address] [address] CHRONIC TONSILLITIS (Primary Dx) Social History Tobacco Use Types Packs/Day Years Used Date Smoking Tobacco: Never Assessed Comments Unknown Sex and Gender Information Value Date Recorded Sex Assigned at Not on file Legal Sex Female 4:57 AM COOK ENCHILADA Gender Identity Not on file Sexual Orientation Not on file documented as of this encounter Plan of Treatment Not on file documented as of this encounter Visit Diagnoses Diagnosis Chronic tonsillitis- Primary documented in this encounter Care Teams Senior Accountant Cpa Relationship Specialty Start Date End Date Kenton Barrientos MD [address] [place] [address] PCP - General 05/18/10 documented as of this encounter
--- OUTSIDE RECORDS SUMMARY | 2024-12-06 19:56 | XMS_ITS | Clinical Summary ---
Author Organization [facility] Address [address] [facility] Attn: Epic Prelude ADT [place] [address] Care Team Providers Care Bale Piler Name Role Phone Kenton Barrientos MD Primary Care Provider [phone] Social History Tobacco Use Types Packs/Day Years Used Date Smoking Tobacco: Never Assessed Comments Unknown Sex and Gender Information Value Date Recorded Sex Assigned at Not on file Legal Sex Female 4:57 AM ESTATE AND TRUST TAX PRINCIPAL Gender Identity Not on file Sexual Orientation Not on file Plan of Treatment Health Maintenance Due Date Last Done Comments DTAP/TDAP/TD VACCINES (1 - Tdap) 2010 HEPATITIS B VACCINES (1 of 3 - 19+ 3-dose series) 04/06 HPV/Cotest (21-29) 2012 HPV VACCINES (1 - 3-dose SCDM series) 2018 CERVICAL CANCER SCREENING 2021 HPV/Cotest (30-65) 2021 PAP SMEAR 2021 INFLUENZA VACCINE (#1) 2024 Care Teams Bale Piler Relationship Specialty Start Date End Date Kenton Barrientos MD [address] [place] [address] PCP - General 05/18/10
--- OUTSIDE RECORDS SUMMARY | 2024-12-06 19:56 | XMS_ITS | Clinical Summary ---
Author Organization [facility] C Address [address] [place] [address] Care Team Providers Care Unemployment Insurance Director Name Role Phone No, Physician Primary Care Provider [phone] Allergies Active Allergy Reactions Criticality Noted Date [...] then refer to Ortho. Anxiety disorder 08/01/2012 Immunizations Immunization Administration Dates Next Due HPV, Quadrivalent 09/13/2007,03/27/2007,09/13/19 07 Hep A, Unspecified 09/12/2006,08/08/2005 Hep B Vaccine 09/24/1996,06/13/1995,05/11/1995 IPV 12/03/1992,1991,1991 ,1991 MMR 09/24/1996,07/26/1992 Meningococcal MCV4P (Menactra) 09/12/2006 Tdap 08/08/2005 Surgical History Surgery Date Site/Laterality Comments CA TONSILLECTOMY PRIMARY/SEC ONDARY <AGE 12 Tonsillectomy - [...] feel afraid or unsafe? Denies 07/26/2023 Comments No Sex and Gender Information Value Date Recorded Sex Assigned at Not on file Legal Sex Female 9:21 PM COPY COORDINATOR Gender Identity Not on file Sexual Orientation Not on file Obstetrics History Para Term AB IAB SAB Ectopic Multiple Livin g Live Births 1 Date Outcome GA Total Labor Labor/2nd/3rd Weight Sex Type Anes PTL Brandy A1 A5 Name Clin Last Filed Vital Signs Vital Sign Reading [...] 1:31 AM CDT Height 162.6 cm (5' 4) 08/01/2012 10:39 AM CDT Body Mass Index - - Plan of Treatment Health Maintenance Due Date Last Done Comments Cervical Cancer Screening 1991 Depression Screening 1991 Hepatitis C Screening 1991 Varicella Vaccines (1 of 2 - 13+ 2-dose series) 2004 Regular Well Visit/Exam 18-64 2009 Pneumococcal vaccine <65 (1 of 2 - PCV) 2010 Covid-19 Vaccine ( - season) 2024 06/24/2020, 05/24/2020, 03/19/2020 Influenza Vaccine (#1) 2024 12/09/2019, 2017 DTaP/Tdap/Td Vaccine (3 - Td or Tdap) 07/05/203104/2021, 08/08/2005 Hepatitis B Screening Completed 09/24/1996 , 06/13/1995, 05/11/1995 HPV Vaccines Completed 09/13/2007, 03/06, 09/12/2006 Insurance [email or web address] Member Subscriber Plan / Payer (Ef fective 2022-Present) Name:Hilaria Shukla Relation to Subscriber:Self Name:Hilaria Shukla Payer ID:[id number] (NAIC) Group ID:[id number] Type:YANNI TURNER Address: [facility] [id number] [address] [address] [place] [phone] [facility]ICE [facility] [place] Care Teams Unemployment Insurance Director Relationship Specialty Start Date End Date No, Physician PCP - General 07/24/23
--- OUTSIDE RECORDS SUMMARY | 2024-12-06 19:56 | XMS_ITS | Clinical Summary ---
Author Organization [facility] Address [address] [place] [id number] Care Team Providers Care Data Entry Analyst Name Role Phone None, Provider MD Primary Care Provider Unavaila ble Allergies Active Allergy Reactions Criticality Noted Date Comments Sulfa Antibiotics Hives 07/05/2024 Medications OLANZapine (ZYPREXA) 2.5 MG tablet Take 1 tablet (2.5 mg total) by mouth nightly at bedtime. Active lamoTRIgine (LAMICTAL) 25 MG tablet Take 1 tablet (25 mg total) by mouth daily. Active Social History Tobacco Use Types Packs/Day Years Used Date Smoking Tobacco: Never Smokeless Tobacco: Never Tobacco Cessation:Counseling Given: Not Answered Alcohol Use Standard Drinks/Week Comments Not Currently 0 (1 standard drink = 0.6 oz pur e alcohol) Comments No Sex and Gender Information Value Date Recorded Sex Assigned at Female 07/05/2024 4:01 PM CDT Legal Sex Female 3:14 PM CDT Gender Identity Not on file Sexual Orientation Not on file Last Filed Vital Signs Vital Sign Reading Time Taken Comments Blood Pressure 102/66 07/06/2024 9:00 AM CDT Pulse 89 07/06/2024 9:00 AM CDT Temperature 36.1 C (97 F) 07/06/2024 6:10 AM CDT Respiratory Rate 18 07/06/2024 9:00 AM CDT Oxygen Saturation 98% 07/06/2024 9:00 AM CDT Inhaled Oxygen Concentration - - Weight 55.4 kg (122 lb 2.2 oz) 07/05/2024 3:25 P M CDT Height 162.6 cm (5' 4) 07/05/2024 3:25 PM CDT Body Mass Index 20.96 07/05/2024 3:25 PM CDT Plan of Treatment Health Maintenance Due Date Last Done Comments Cervical Cancer Screening Pa p Smear (Age 30 to 64) Every 3 Years 1991 Annual Physical 1994 Hepatitis C 2009 DTaP, Tdap and Td Vaccines ( 2 - Td or Tdap) 08/09/2015 08/08/2005 Cervical Cancer Screening Pa p with HPV Testing (Age 30 to 64) Every 5 Years 2021 Cervical Cancer Screening wi th HPV 2021 COVID-19 Vaccine (2023-2 5 season) 2024 Influenza Adult (#1) 2024 Hepatitis B Vaccines Completed 09/24/1996, 06/13/1995, 05/11/1995 Meningococcal Vaccine Aged Out 09/12/2006 No saad rita eligible based on patient's age to complete this topic HPV Vaccines Completed 09/13/2007, 03/27/2007, 09/12/2006 Meningococcal B Vaccine Aged Out No l onger eligible based on patient's age to complete this topic Pneumococcal Vaccine: Pediatrics (0 to 5 Years) and At-Risk Patients (6 to 49 Years) Aged Out No longer eligible b ased on patient's age to complete this topic RSV Immunizations Under 20 Months Aged Out No longer eligible b ased on patient's age to complete this topic Care Teams Data Entry Analyst Relationship Specialty Start Date End Date None, Provider, MD PCP - General UNKNOWN PHYSICIAN SPECIALTY 07/05/24
--- NOTE | 2024-12-06 23:01 | PC.NURSE ---
Patient in bathroom and using her vape pen. manufacturing test technician and nurse discharge notified patient that there is no smoking inside and that this is a smoke free facility. Security called.
--- NOTE | 2024-12-06 23:12 | ED.DENTAL ---
HPI - Dental/Oral General Chief complaint: Dental/Oral Stated complaint: tooth pain Time Seen by Provider: 12/06/24 21:21 Source: patient Mode of arrival: EMS Limitations: no limitations History of Present Illness HPI Narrative: Patient is a 34-year-old female who presents the ED via EMS with report of dental pain. Per triage note, patient reported having left upper dental pain. Obtained transportation from a local urgent care. Upon my evaluation, patient uncooperative and refusing to answer any questions. Does report dental pain, but will not give any further information on this. Related Data Home Medications ?Medication ?Instructions ?Recorded ?Confirmed ?Last Taken ?Type Unable to Obtain Home Medications 03/14/24 03/14/24 Unknown History Allergies Allergy/AdvReac Type Severity Reaction Status Date / Time clams AdvReac Intermediate Hives Verified 12/06/24 21:17 Sulfa (Sulfonamide AdvReac Intermediate Hives Verified 12/06/24 21:17 Antibiotics) Review of Systems Review of Systems: All systems reviewed & are unremarkable except as noted in HPI. All systems reviewed & are unremarkable except as noted in HPI and below Exam Narrative: GENERAL: Well appearing, thin, non-toxic, in no acute distress. HEAD: Normocephalic, atraumatic. RESPIRATORY: Airway patent, respirations nonlabored. No stridor or distress. CARDIOVASCULAR: Regular rate and rhythm MUSCULOSKELETAL: Moves all extremities. No gross deformities. SKIN: Warm, dry, normal color. NEURO: A&O X3. Speech clear. Cranial nerves II-XII grossly intact. Steady gait. No ataxic movements. PSYCHIATRIC: Somnolent rambling/tangential thoughts. Speech is pressured at times. Uncooperative. Course Vital Signs Vital signs: Vital Signs Temperature 98.8 F 12/06/24 19:56 Pulse Rate 100 12/06/24 19:56 Respiratory Rate 18 12/06/24 19:56 Blood Pressure 130/98 H 12/06/24 19:56 Pulse Oximetry 98 12/06/24 19:56 Oxygen Delivery Room Air 12/06/24 19:56 Temperature 98.8 F 12/06/24 19:56 Pulse Rate 100 12/06/24 19:56 Respiratory Rate 16 12/06/24 23:30 Blood Pressure 130/98 H 12/06/24 19:56 Pulse Oximetry 98 12/06/24 19:56 Oxygen Delivery Room Air 12/06/24 19:56 MDM - Dental/Oral MDM Narrative Medical decision making narrative: Patient presented to ED via EMS with report of dental pain. Vital signs stable upon arrival. Patient in no acute distress, no evidence of respiratory distress or airway compromise. Maintaining secretions. No trismus or stridor. Upon my evaluation, patient is uncooperative, refusing to answer questions. Very defensive upon questioning. Was found to be smoking marijuana in the ER bathroom. Required security to redirect. Making jokes of my questioning and will not tell me what symptoms she is having or why she is in the ED. Eventually did tell me she was having dental problems, but would not divulge any further information. Patient somewhat belligerent, but does not appear acutely psychotic or intoxicated. Telling me that I am a fake doctor and need to go back to medical school. Laughing at my questioning and refusing to answer. Answering the phone while I am in the room and telling me to hold on while pointing a finger out to me. Patient not allowing me to examine her mouth. Patient will be discharged at this time. Is not having any life threatening dental issue or respiratory compromise or distress at this time. Advised to follow-up with dentist. Discharged in stable condition. Medical Records Attestation: I reviewed the patient's medical records. Discharge Plan Discharge Clinical Impression: Toothache Patient Disposition: Home Condition: Stable Instructions: Antibiotic Form, Toothache (ED) Additional Instructions: Follow up with your dentist. Recommend Tylenol/Ibuprofen as needed for pain. Patient Language: Amharic Prescriptions: No Action Unable to Obtain Home Medications Follow-up/Referrals: PHYSICIAN,MORTGAGE LOAN OFFICER ORIGINATOR [Primary Care Provider, Internal Medicine] Time of Disposition: 23:12
[2024-12-06 23:30] VITALS: RESP 16
== END 2024-12-06 23:30 | disposition home or self-care (01) ==
PROVIDERS: Emergency Provider Physician Assistant
DX: K08.89 Other specified disorders of teeth and supporting structures (principal)
CPT/HCPCS: 99281